=== PATIENT | female | born 1945 | race Caucasian/White ===

== ENCOUNTER → 2017-10-13 | Outpatient (CLI) | payer OTHER ==
[~2017-10-13] VITALS: Ht 167.6 cm; Wt 52.4 kg
[~2017-10-13] MED LIST: ASPIRIN EC81 M1 PO; ATIVAN1 MG PO; AVINZA 90 MG CA90 MG PO; CLONAZEPAM 0.50.5 M1 PO; ESCITALOPRAM OX20 MG PO; MELATONIN5 M1 PO; METHYLPHENIDATE5 M1 PO; MIRAPEX1 MG PO; MORPHINE SULFAT15 M3 PO; NIACIN SR 250250 MG PO; ONE DAILY TABL1 EACH PO; PROPECIA PO; VITAMIN B-12500 MCG PO; VITAMIN D31000 UNI2 PO; VITAMINC500 PO; ZANAFLEX4 MG PO; ZOLOFT100 MG PO; ZOLPIDEM TART12.5 M1 PO
--- NOTE | ~2017-10-13 | HPC ---
[facility] [place] [address] PAIN MANAGEMENT CONSULTATION Name: ÁNGELA RAGLAND Room #: REG [facility].#: [id number] Admission: 10/13/17 Attend Phys: Derek Izaguirre MD Discharge: Date of : 49 Report #: [id number] THIS REPORT FOR: //name// CC: Zoila Izaguirre DATE OF SERVICE: 10/17/2017 CHIEF COMPLAINT: Low back pain radiating into the left and right low back and into the leg. The patient was previously seen in the Pain Clinic over 4 years ago for treatment of back pain. She is a very active female who enjoys exercise and yoga. On 09/02/2017, she began experiencing back pain first in her right buttock and right thigh to the ankle. She had a noticeable limp. The right leg with very weak and then on 09/27/2017 on 09/28/2017, switched from her left low back and the right leg improved. This is more severe pain than the right previous pain that she was experiencing. It is worsened by activity, sitting. Every 2 hours during night or sleeping, she has to get up and reach or bend and it has been improved by cryotherapy and walking, although she specifies that it is better walking on firm ground than on the treadmill. She describes as constant with intensity often in the 9/10 range. MEDICATIONS: Methylphenidate, melatonin, Mirapex, tizanidine, Lexapro, multivitamins, morphine intermediate release 2-6 tablets per day, clonazepam and lorazepam. ALLERGIES: PENICILLIN, SULFA, TETRACYCLINE. PAST MEDICAL HISTORY: Previous history of back pain. History of anxiety, depression "Heart" calcifications in vessels noted on scan, 2 previous foot surgeries which included problems with RSD, torn meniscus in 2004. SOCIAL HISTORY: She is a teacher, working at [employer], teaching Biology. She denies use of tobacco or alcohol. She is with a supportive . REVIEW OF SYSTEMS: Completed by the patient and we went over each of the 12 categories. Primary noted are heart disease, nocturia, depression and insomnia. PQRS review shows osteoarthritis of knees, chronic. Below 20 BMI with a BMI of 18.7. She is not a fall risk. She is not hypertensive. She is on an opioid agreement outside of our clinic. Her functional assessment tool is 70. Risk assessment tool was not provided. Pain intensity 01/24. [facility] [address] [place] [address] PAIN MANAGEMENT CONSULTATION Name: ÁNGELA RAGLAND Room #: REG CLI [facility]#: [id number] Admission: 10/13/17 Attend Phys: Derek Izaguirre MD Discharge: Date of : 49 Report #: [id number] PHYSICAL EXAMINATION: GENERAL: Anxious female. VITAL SIGNS: Blood pressure is 125/80, heart rate is 80. She is able to move independently from sitting to standing position. She walks without antalgic features. CHEST: Clear to auscultation. CARDIAC: Rhythm is regular. ABDOMEN: Soft. BACK: Reveals normal alignment. There are painful areas alongside the spine with forward flexion and extension. Miinimal straight leg raising pain with left 3-4 radiation at straight leg raising. Strength 5/5 bilaterally throughout and DTR's 2+ knees and ankles without asymmetry. MRI: Throughout the spine, there is multilevel degenerative change and facet arthrosis. There is a grade 4/5 degenerative anterolisthesis, which is unchanged. There is an annular tear at L3-L4 associated with disk herniation of the far lateral location. There is no significant central stenosis throughout. IMPRESSION: Herniated nucleus pulposus, L3-L4 with annular tear. Lumbar spondylosis and anterolisthesis of L4 on L5. RECOMMENDATIONS: Epidural steroid injection. Lengthy discussion with the patient and regarding diagnosis and treatment. I plan to see her back for epidural injection as soon as we receive preauthorization from [employer]el[employer]. <ELECTRONICALLY SIGNED> By: Derek Izaguirre MD 10/17/17 1152 [id number] Derek Izaguirre MD /nt
[2017-10-13 12:45] VITALS: BP 156/88
== END ==
LOC: PAIN 07:06
DX: M47.26 Other spondylosis with radiculopathy, lumbar region (principal); Z88.0 Allergy status to penicillin; Z88.1 Allergy status to other antibiotic agents; Z88.2 Allergy status to sulfonamides

== ENCOUNTER → 2017-10-20 | Outpatient (CLI) | payer OTHER ==
[~2017-10-20] VITALS: Ht 167.6 cm; Wt 51.6 kg
[~2017-10-20] MED LIST changes: +CELEXA20 MG PO; +HYDROCODON-ACE1 EAC5 PO; +HYDROCODONE-AP1 EAC6 PO; +IBUPROFEN 600600 M1 PO
--- NOTE | ~2017-10-20 | HPC ---
[address] [address] PAIN MANAGEMENT CONSULTATION Name: ÁNGELA RAGLAND Room #: REG [facility].#: [id number] Admission: 10/20/17 Attend Phys: Derek Izaguirre MD Discharge: Date of : 49 Report #: [id number] THIS REPORT FOR: //name// CC: Zoila Izaguirre DATE OF REGISTRATION: 10/13/2017 Followup visit for lumbar radiculopathy with long discussion about opioid medications in 2018. We are still waiting on a preauthorization request sent to the patient's insurance company, [employer]. I am unable to provide her with injection until we receive that authorization. She has low back pain with radiation to the right buttock and into the right lower extremity. She has been treated previously for this as all has been over 12 years in my clinic. At that time, her last injection was a right L5-S1 transforaminal injection. We reviewed her underlying condition, which suggest that she has pain related to an L4-L5 grade 1 degenerative anterolisthesis. There may also be some associated radiculopathy related to an annular tear, although it is on the contralateral side. An epidural steroid injection is clearly reasonable next step and we will move to perform that as soon as possible, perhaps as early as Tuesday if we can get [employer] to preauthorize it for us. I spent an additional 25 minutes in this visit today, discussing with the patient her use of opioid medication. For years, she has taken 7.5 mg MSIR at bedtime to help with restless leg syndrome in addition to her polypharmacy for other issues. This has worked effectively. This was originally provided for her continuously by and continued by Dr. Crespo after departure from [place]. Recently, she said to me that Dr. Crespo was unwilling to prescribe her higher dose that has been utilized for this radicular symptom. 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 She has been using medications to allow her to continue to get through her day. On the weekend, her dose decreased down to less than half of that at 50 morphine mg equivalents. She is slightly better. We have discussed the CDC guidelines and our goal of using the lowest effective dose. We have talked about limiting her to 1 short acting opioid and after some discussion, she has agreed that she will use fairly scheduled dose of hydrocodone until the epidural injection. I provided for her 30 hydrocodone 10/325 tablets to take 1 tablet 3 times per day for a total of [address] [address] PAIN MANAGEMENT CONSULTATION Name: ÁNGELA RAGLAND Room #: REG [facility] [place]#: [id number] Admission: 10/20/17 Attend Phys: Derek Izaguirre MD Discharge: Date of : 49 Report #: [id number] An extensive discussion regarding the use of chronic opioids ensued. The patient was a patient in our clinic as far back as 1997. In the records that I have available, I can see that even in the year 1999 when she was suffering from complex regional pain syndrome, she was taking OxyContin 20 mg 2 tablets 3 times a day at one time as a peak. She has been on and off of opioids for about 20 years in order to help control pain. She has never shown signs of addiction. 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 I did express with her some concern about her polypharmacy with multiple centrally acting drugs. I think we can work to try and control her opioid medications, but she currently continues on Mirapex, tizanidine, Lexapro, clonazepam and lorazepam. I think we should be cautious, although she has shown tolerance to these combinations having used them over a course of many years. PHYSICAL EXAMINATION: GENERAL: She is pleasant today, slightly anxious. VITAL SIGNS: Height is 5 feet 6 inches, weight 113 pounds, blood pressure 146/98, heart rate 96. MUSCULOSKELETAL: Tenderness across the low back. Positive straight leg raising on the right following an L5 distribution. No focal weakness. Antalgic gait. IMPRESSION: Low back pain with radiculopathy following an L4-L5 distribution. Herniated nucleus pulposus, L3-L4 with anterolisthesis of L4-L5. PLAN: Epidural steroid injection under fluoroscopic guidance on her next visit. <ELECTRONICALLY SIGNED> By: Derek Izaguirre MD 10/24/17 1408 1612 46 Derek Izaguirre MD /nt
[2017-10-20 09:34] VITALS: BP 146/98
== END ==
LOC: PAIN 07:11
DX: M54.16 Radiculopathy, lumbar region (principal); F11.90 Opioid use, unspecified, uncomplicated

== ENCOUNTER → 2017-11-24 | Outpatient (CLI) | payer OTHER ==
[~2017-11-24] VITALS: Ht 167.6 cm; Wt 51.3 kg
[~2017-11-24] MED LIST changes: +AMBIEN 5 MG TABL5 M1 PO; +ASPIR 8181 MG PO; +FLEXERIL PO; +KADIAN20 MG PO; +MS CONTIN15 MG PO
--- NOTE | ~2017-11-24 | HPC ---
[facility] [place] [address] PAIN MANAGEMENT CONSULTATION Name: ÁNGELA RAGLAND Room #: REG [facility].#: [id number] Admission: 11/24/17 Attend Phys: Derek Izaguirre MD Discharge: Date of : 49 Report #: [id number] THIS REPORT FOR: //name// CC: Zoila Izaguirre DATE OF SERVICE: 11/24/2017 Followup visit for low back pain. The patient returns to the Pain Clinic today with her . She has continued to complain of pain across the low back, now complaining more so to the left. Her pain has changed some over the course of the last 4 months since onset. It originally began on the right, was associated with radicular features, then moved to the left and was across the lumbosacral segment. She has had an MRI, which shows evidence of degenerative disk disease, facet arthropathy. At the request of Dr. Crespo, she was referred to another pain physician at [facility], Dr. Dr. Jhonny Arceo. Dr. Arceo ordered flexion and extension views, which I have had the pleasure to review today. These do show some abnormal motion with a grade 1 anterolisthesis of L3-L4 and L4-L5 showing 2-3 mm of motion between flexion and extension as well as previously noted multilevel spondylosis. On presentation today, the patient's pain is far more localized in the left sacroiliac joint. This was noted also by Dr. Arceo. She has localized tenderness there and she has a positive VERONICA test. Consideration of a pain generator in the sacroiliac joint is certainly under consideration at this time. Pain is 6/10 today, at worse by activity, sitting, up and down activities, prolonged sleeping, bending. She is often painful when she first gets up. The pain does not radiate as it has before, although at times, she feels that her entire left leg is uncoordinated. The patient continued to do physical therapy and is active up to 30 minutes daily! MEDICATIONS: All medications were reviewed and reconciled provided by Dr. Crespo. There is complete list on the electronic medical record and is unchanged from previous visits. PHYSICAL EXAMINATION: Anxious female. She cried in my office today feeling hopeless that she will never get better. 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 Her blood pressure 162/96, heart rate 94. She is 5 feet 6 inches with a BMI of 18.2. She is able to easily move from sitting to standing position. Examination of the spine reveals some localized [facility] [address] [place] [address] PAIN MANAGEMENT CONSULTATION Name: ÁNGELA RAGLAND Room #: REG [facility]#: [id number] Admission: 11/24/17 Attend Phys: Derek Izaguirre MD Discharge: Date of : 49 Report #: [id number] tenderness primarily to the left in the area of the sacroiliac joint. She has more pain with forward flexion and extension. This is more axial than it is to the left in the SI joint. Straight leg raising today is negative. Sensation and strength are unchanged and within normal limits and symmetrical. There is a positive VERONICA suggesting sacroiliac joint pain with localized tenderness in the inferior pole. IMPRESSION: Intractable back pain, now 4 months in duration. This appears to be mechanical in nature. She has multiple abnormalities throughout her MRI suggesting degenerative changes of disks and facet joints as well as some motion noted in flexion and extension views of the lumbar spine. Exam would suggest that there is a sacroiliac mechanism today based upon localization of pain. RECOMMENDATIONS: I think a diagnostic/therapeutic sacroiliac injection might provide some worthy information and may even have some substantial therapeutic benefits. I have recommended that we proceed with that injection today, but need to receive preauthorization from [employer] insurance. We will do so and bring her back to the clinic in 3-4 days. Procedures and diagnostic testing were discussed in detail with the patient. Consultation time roughly 25 minutes. By: 1225 191 Derek Izaguirre MD /nt
[2017-11-24 11:20] VITALS: BP 162/96
== END ==
LOC: PAIN 05:40
DX: M54.5 Low back pain (principal)

== ENCOUNTER → 2017-12-01 | Outpatient (CLI) | payer OTHER ==
[~2017-12-01] VITALS: Ht 167.6 cm; Wt 50.6 kg
--- NOTE | ~2017-12-01 | HPC ---
[facility] [place] [address] PAIN MANAGEMENT CONSULTATION Name: ÁNGELA RAGLAND Room #: REG [facility].#: [id number] Admission: 12/01/17 Attend Phys: Derek Izaguirre MD Discharge: Date of : 49 Report #: [id number] THIS REPORT FOR: //name// CC: Zoila Izaguirre DATE OF SERVICE: 12/01/2017 DATE OF REGISTRATION: 12/01/2017 Followup visit for chronic low back pain. The patient is here today for sacroiliac injection. She was seen in the clinic a few days ago and we scheduled the appointment for today. She had a number of questions once again about her pain, many of which are unanswerable. She had questions about long-term prognosis. It is difficult to determine how her pain will progress. She does have spondylitic changes. She has some instability as noted with flexion and extension views on her x-rays. The most aggressive approach for her current instability would be lumbar fusion, but I have not recommended this surgery. It is hard to determine whether the pain that might result is from an aggressive fusion, might be worse than the pain associated with her underlying spondylitic changes in the sacroiliac joints as well as in the facet joints. Given the fact that she already has sacroiliac joint pain, fusion of the lumbosacral segments would likely only worsen that arthritic pain. We talked a bit about medications and talked a lot about exercise, but more importantly body mechanics to help prevent exacerbation of pain. At the conclusion of her questions, we discussed procedure, risks and benefits, informed consent was signed and she was taken to fluoroscopic suite for sacroiliac joint injection. PROCEDURE: Sacroiliac joint injection on the left. Under fluoroscopic guidance, the patient was taken to fluoroscopic suite and placed prone. Skin was prepped with ChloraPrep overlying the sacroiliac joint. Two separate needle approaches were used to identify the posterior capsule of the sacroiliac joint. Isovue was injected. I did see a small amount of dye enter into the joint space to determine partial arthrogram. After negative aspiration, I gently injected 1.5 mL of 0.25% bupivacaine mixed with 40 mg of triamcinolone. She tolerated the procedure well. There were no complications. She was taken to recovery room. I will see her back in a month. [address] [address] PAIN MANAGEMENT CONSULTATION Name: OBIEÁNGELA Room #: REG CLI [facility]#: [id number] Admission: 12/01/17 Attend Phys: Derek Izaguirre MD Discharge: Date of : 49 Report #: [id number] No medications were ordered on this visit. <ELECTRONICALLY SIGNED> By: Derek Izaguirre MD 12/05/17 1711 1217 1845 Derek Izaguirre MD /nt
[2017-12-01 09:33] VITALS: BP 145/97
== END | disposition home or self-care (01) ==
LOC: PAIN 08:15
DX: M53.3 Sacrococcygeal disorders, not elsewhere classified (principal); G89.29 Other chronic pain; M54.5 Low back pain; Z87.891 Personal history of nicotine dependence; Z88.0 Allergy status to penicillin; Z88.2 Allergy status to sulfonamides; Z88.8 Allergy status to other drugs, medicaments and biological substances; Z79.82 Long term (current) use of aspirin; Z98.890 Other specified postprocedural states; Z79.891 Long term (current) use of opiate analgesic

== ENCOUNTER → 2017-12-29 | Outpatient (CLI) | payer OTHER ==
[~2017-12-29] VITALS: Ht 167.6 cm; Wt 51.4 kg
[~2017-12-29] MED LIST changes: +NABUMETONE 750750 M1 PO
--- NOTE | ~2017-12-29 | HPC ---
[facility] [place] [address] PAIN MANAGEMENT CONSULTATION Name: ÁNGELA RAGLAND Room #: REG [facility].#: [id number] Admission: 12/29/17 Attend Phys: Derek Izaguirre MD Discharge: Date of : 49 Report #: [id number] THIS REPORT FOR: //name// CC: Dr Stephon Izaguirre DATE OF SERVICE: 12/29/2017 Followup visit for chronic low back pain. The patient was in the clinic today for roughly 25 minutes with her . She had another long list of questions regarding her underlying pain. Most of her pain is across her lumbosacral segment. She no longer seems to have much pain in her sacroiliac joints, which is good news. I treated the left SI joint with injection on 12/01/2017. She was told that she would always have pain and this has depressed her a bit. We talked a little bit about pain management, but I provided her with a more optimistic outlook. I am hopeful that with continued activity, back pain oftentimes can be intermittent and may have some resolution. We reviewed her underlying pathology from her MRI. There is a question if she has some age-related degenerative conditions, although she is lean and active. She nonetheless is 72 years old and her x-ray confirms some of that in the evidence of hypertrophic facet arthrosis and ligamentum hypertrophy. She has facet arthrosis bilaterally at L2-L3, L3-L4 and L4-L5. Fortunately; however, there is no significant central canal stenosis at any level and the neural foramen as well are in pretty good shape. She may be a candidate for some facet-mediated treatments. We could consider cortisone injections into this small facet injections, which for some of my patients has provided many months of relief and can be performed fairly quickly. This also would constitute a diagnostic injection. If the duration of response is short, then she would be a candidate to proceed with radiofrequency ablation once we have tested the medial branch nerves. I explained this to the patient and her . We talked a bit about medications. She is a bit reluctant to take medications and this is well understood. We talked about hydrocodone, which she has available and MS Contin, which she takes at bedtime. Her medications were prescribed outside of the clinic, so I did not go into a lot of discussion about the CDC guidelines and opioid management, but we did talk about the importance of carefully utilizing the medications and safeguarding them. PHYSICAL EXAMINATION: She is a bit anxious. Blood pressure 156/80, [place] [address] PAIN MANAGEMENT CONSULTATION Name: ÁNGELA RAGLAND Room #: REG [facility]..#: [id number] Admission: 12/29/17 Attend Phys: Derek Izaguirre MD Discharge: Date of : 49 Report #: [id number] 95, respirations 14, BMI is 18.3. Tenderness across the mid lumbar spine. There is no muscle spasm or tenderness. Most of the pain is noted with flexion and extension. Range of motion is quite good in flexion and extension. Straight leg raising is negative for radicular pain. IMPRESSION: Chronic and persistent low back pain. I think there is degenerative disease at more than one location. Certainly, her sacroiliac joints were painful, but she also has lumbar spondylosis. She will follow up in a month or so for possible facet injections. In the meantime, she is pursuing two other courses of treatment. She has been started on nabumetone and she is going to do acupuncture. She is also starting with Pilates. These 3 therapies may provide some nice improvement for so I am optimistic that I may not see her back for injections. Followup visit planned in 1 month. By: 1709 2043 Derek Izaguirre MD /nt
[2017-12-29 13:01] VITALS: BP 156/80
== END ==
LOC: PAIN 06:57
DX: M47.816 Spondylosis without myelopathy or radiculopathy, lumbar region (principal); M54.5 Low back pain; M53.3 Sacrococcygeal disorders, not elsewhere classified; G89.29 Other chronic pain

== ENCOUNTER → 2018-01-30 | Outpatient (CLI) | payer OTHER ==
[~2018-01-30] VITALS: Ht 167.6 cm; Wt 52.0 kg
[~2018-01-30] MED LIST changes: +CELECOXIB100 MG PO; +CYCLOBENZAPRINE5 MG PO; +GUANFACINE HCL1 MG PO; +OXYCODONE HCL10 MG PO; +PRAMIPEXOLE D0.25 MG PO
--- NOTE | ~2018-01-30 | HPC ---
[facility] [place] [address] [place] [address] PAIN MANAGEMENT CONSULTATION Name: ÁNGELA RAGLAND Room #: REG [facility].#: [id number] Admission: 01/30/18 Attend Phys: Derek Izaguirre MD Discharge: Date of : 49 Report #: [id number] THIS REPORT FOR: //name// CC: Zoila Izaguirre DATE OF SERVICE: 01/30/2018 Followup visit for ongoing persistent low back pain. The patient returns to pain clinic today in followup. She was only in my office for a 5-10 minute [id number] discussion. Her primary care physician, Dr. Crespo, has recommended that she see Dr. Zoila Ngo at [facility] for further treatment. At last visit, I discussed at length with the patient of her x-ray, which confirms evidence of hypertrophic facet arthrosis and ligamentum hypertrophy. I suggested that she would be a candidate for facet mediated treatments including injections and medial branch nerve blocks. She is receiving her pain medication from primary service. Dr. Ngo apparently agrees with this approach and will begin providing the treatments that I recommended at my last visit. I also noted at last visit that she was pursuing other courses of treatment. She was on a nonsteroidal anti-inflammatory drug nabumetone and was undergoing acupuncture. I queried her about the benefits from these treatments along with her Pilates. One of our goals was to see if she could respond to these conservative measures. Apparently, the acupuncture provided relief briefly following each visit but did not last, her treating practitioners recommended that she not return. I have wished her the best of luck in treatment with the radiofrequency directed at medial branch nerve blocks. All care for her chronic and persistent pain will be transferred to Dr. Zoila Ngo at [facility]. By: 1532 1604 Derek Izaguirre MD /nt
[2018-01-30 12:40] VITALS: BP 125/74
== END ==
LOC: PAIN 09:08
DX: M54.5 Low back pain (principal)

== ENCOUNTER → 2018-04-06 | Outpatient (CLI) | payer OTHER ==
[~2018-04-06] VITALS: Ht 167.6 cm; Wt 52.0 kg
[~2018-04-06] MED LIST changes: +LYRICA25 MG PO; +MORPHINE SULFAT20 M1 PO; +SERTRALINE HCL100 MG PO; +TOPROL XL25 MG PO; +TRAZODONE HCL50 MG PO; +ZOLPIDEM TART12.5 MG PO
--- NOTE | ~2018-04-06 | HPC ---
[facility] [place] [address] PAIN MANAGEMENT CONSULTATION Name: ÁNGELA RAGLAND Room #: REG [facility].#: [id number] Admission: 04/06/18 Attend Phys: Derek Izaguirre MD Discharge: Date of : 49 Report #: [id number] THIS REPORT FOR: //name// CC: Zoila Izaguirre DATE OF SERVICE: 04/06/2018 The patient is back in my clinic. Dr. Dumont has asked her to return to my service. Dr. Crespo has been asking for the patient to see Dr. Zoila Ngo at [facility]. She did so. She received medial branch nerve blocks there in addition to sacroiliac injections. They were unhelpful. She then saw Dr. Dumont who suggested that the patient return to my service. All medications were provided for the patient by her primary care physician, Dr. Crespo. She is here today for another look at her chronic pain. She has now had pain for nearly 6 months. The pain is in more than one location. We went through the pain history in some detail. Her most severe pain is a left central lumbosacral pain that is involved in the left sacroiliac joint, the cheek of the buttock. It radiates into the leg. It does not go far. Most of the pain stays high in the gluteal region. It is worse when it rains, but otherwise, there are no definable patterns. Back pain developed around the same time as pain in the left knee. She has some chronic problems there and had a lateral meniscectomy performed in [address] Akira Garcia at [facility]. She recovered well from that surgery, but when this new pain began in her left buttock region, it was associated also with pain in the left knee. They do not radiate in a classic radicular pattern. She has had some help with physical therapy. Most of the therapy has focused on movement throughout the lumbosacral segment in the hip and she says that the pain in her hip is better. She has a second pain on her right side. She describes this as a constant sensation with an intermittent severe aching in the top of her right foot and radiates into the toes. She describes her feet at times is cold and blue, worse on the right than the left. She has a history of complex regional pain syndrome. MEDICATIONS: Reviewed and reconciled. She is on a significant regimen of polypharmacy including sertraline, zolpidem, MS Contin 15 mg, oxycodone 10 q.8h., Lyrica 25 mg t.i.d., melatonin, lorazepam 1 mg now 4 [place] [address] PAIN MANAGEMENT CONSULTATION Name: ÁNGELA RAGLAND Room #: REG [facility]#: [id number] Admission: 04/06/18 Attend Phys: Derek Izaguirre MD Discharge: Date of : 49 Report #: [id number] used to take it just for sleep, but has taken more recently as she has become more anxious about her ongoing pain and concern. The patient sleeps well. She denies bowel or bladder dysfunction. She has had no weight loss or gain. Her depression is worse and she sees a counselor, Dr. Roman, a psychiatrist who prescribes her anxiety and depression medication. PHYSICAL EXAMINATION: She is an anxious female, slender and intense. Her blood pressure 129/89, heart rate 78, respirations 16. Her BMI is 18.5. This is normal for her. She is able to independently move from sitting to standing position and walks without any antalgic features to her gait. She has no pain with forward flexion of the lumbar spine. She can nearly touch her fingers to the floor. With extension, she has increasing pain on the left side of the lumbosacral segment. This involves area around and below the iliac crest. She has minimal discomfort in the right. There is localized tenderness along the facet joints of the left. Sacroiliac joint also is tender. Straight leg raising is negative for radiculopathy. Internal and external rotation of the hips are performed without any evidence of hip arthropathy. Sensation and strength are normal. She has a Jerilyn positive test, which aggravates a bit of pain across the low back, but no further. X-rays were reviewed. It does show that there is an annular tear, but this does not appear to be concordant with her pain. She has reported L4-L5 anterolisthesis, which would be consistent with facet arthropathy as noted. There is facet hypertrophic arthrosis and there is ligamentum hypertrophy. There is not evidence of central stenosis or neural foraminal narrowing. IMPRESSION: Lumbosacral pain, left-sided, aggravated by back extension and at this point, I will continue to entertain the possibility of facet arthropathy or perhaps sacroiliac joint as pain generator. We had a lengthy discussion about treatments including therapeutic and diagnostic injections of the facet injections. She has failed medial branch nerve blocks under the treatment of Dr. Zoila Ngo. I would still consider the possibility of left-sided L3-L4, L4-L5 and L5-S1 facet injections using the posterior inferior approach to the capsule. Procedure explained, risks and benefits. If she does not respond favorably to this, I would consider sacroiliac injection. In the meantime, most important thing she can do is continue to remain active with her therapy and remain engaged at work. This will help with her psychosocial concerns associated with her chronic pain. She can continue to [facility] [address] [place] [address] PAIN MANAGEMENT CONSULTATION Name: ÁNGELA RAGLAND Room #: REG CLI [facility].#: [id number] Admission: 04/06/18 Attend Phys: Derek Izaguirre MD Discharge: Date of : 49 Report #: [id number] receive her medication from her excellent treating physicians. She is scheduled back for facet injections in 1-2 weeks. By: [id number] Derek Izaguirre MD /nt
[2018-04-06 12:47] VITALS: BP 129/89
== END ==
LOC: PAIN 07:08
DX: M54.5 Low back pain (principal); M25.552 Pain in left hip; Z79.899 Other long term (current) drug therapy

== ENCOUNTER → 2018-05-08 | Outpatient (CLI) | payer OTHER ==
[~2018-05-08] VITALS: Ht 167.6 cm; Wt 52.6 kg
[~2018-05-08] MED LIST changes: +NUCYNTA50 MG PO
--- NOTE | ~2018-05-08 | HPC ---
[facility] [place] [address] [place] [address] PAIN MANAGEMENT CONSULTATION Name: ÁNGELA RAGLAND Room #: REG [facility].#: [id number] Admission: 05/08/18 Attend Phys: Derek Izaguirre MD Discharge: Date of : 49 Report #: [id number] THIS REPORT FOR: //name// CC: ANGELO Izaguirre DATE OF SERVICE: 05/08/2018 HISTORY OF PRESENT ILLNESS: The patient returns to pain clinic today for a 20-minute consultation followed by lumbar facet injections. She continues to complain of pain down into her back. It radiates into the hip. She has unusual sensations into the left knee. She has been managing with medication. Pain is primarily on the left. She has started on a new medicine tapentadol 50 mg q. 6 hours p.r.n. in addition to zolpidem for sleep, melatonin for sleep, lorazepam for anxiety 3-4 times a day, citalopram, Relafen. ALLERGIES: PENICILLIN, SULFA, TETRACYCLINE. 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 She is not going out much and I have encouraged some social activities. She is able to walk, but no more than about 10 minutes before she begins getting tightness. She has had some pain in her mid to upper back after a long day, so has been some rubbing Voltaren gel into her back. PHYSICAL EXAMINATION: She is an anxious female. Her blood pressure is 122/89, heart rate is 82, respirations 16. BMI is 18.7, typical for her. She moves from a sitting to standing position, ambulates with a mild antalgic gait favoring her left leg. She has pain in her left lower lumbosacral segment and pain with back extension reproducing pain that radiates into the buttock. Today, it does not radiate far down her leg but as far as the knee. She has good range of motion of the hip joint. Tenderness over the lumbosacral segment on the left of midline. X-rays are consistent with degenerative loss. She has arthritis and spondylosis. There is a degenerative anterolisthesis of L4 on L5 and also facet arthrosis at L3-L4. There is facet arthropathy also noted at L2-L3 on the left. IMPRESSION: Lumbar spondylosis. PROCEDURE: Three-level facet injections, L2-L3, L3-L4, L4-L5 under fluoroscopic guidance. DESCRIPTION OF PROCEDURE: She was taken to fluoroscopic suite, placed prone, skin prepped with ChloraPrep. Skin anesthetized with 1% lidocaine. A 25-gauge [address] [address] PAIN MANAGEMENT CONSULTATION Name: ÁNGELA RAGLAND Room #: REG [facility] Delta#: [id number] Admission: 05/08/18 Attend Phys: Derek Izaguirre MD Discharge: Date of : 49 Report #: [id number] spinal needle was advanced into the posterior inferior capsule of the joint at its most inferior location at each level. Needle slipped into the inferior recess. After negative aspiration, I injected each joint with 0.5 mL of 0.5% bupivacaine mixed with 15 mg of triamcinolone. She tolerated the procedure well and was observed for 45 minutes and discharged. Followup visit planned in the pain clinic on an as needed basis. By: [id number] Derek Izaguirre MD /nt
[2018-05-08 14:15] VITALS: BP 129/80
== END | disposition home or self-care (01) ==
LOC: PAIN 07:17
DX: M47.816 Spondylosis without myelopathy or radiculopathy, lumbar region (principal); G89.29 Other chronic pain; M19.90 Unspecified osteoarthritis, unspecified site; M43.16 Spondylolisthesis, lumbar region; Z88.0 Allergy status to penicillin; Z88.2 Allergy status to sulfonamides; Z88.8 Allergy status to other drugs, medicaments and biological substances; Z79.899 Other long term (current) drug therapy; Z87.891 Personal history of nicotine dependence

== ENCOUNTER → 2018-06-05 | Outpatient (CLI) | payer OTHER ==
[~2018-06-05] VITALS: Ht 167.6 cm; Wt 54.0 kg
[~2018-06-05] MED LIST changes: +IBUPROFEN 200200 M1 PO; +NORCO 10-325 T1 EACH PO; +TYLENOL EXTRA500 MG PO
--- NOTE | ~2018-06-05 | HPC ---
[facility] [place] [address] PAIN MANAGEMENT CONSULTATION Name: ÁNGELA RAGLAND Room #: REG [facility].#: [id number] Admission: 06/05/18 Attend Phys: Derek Izaguirre MD Discharge: Date of : 49 Report #: [id number] THIS REPORT FOR: //name// CC: Zoila Izaguirre DATE OF SERVICE: 06/05/2018 Followup visit for low back pain with radiculopathy, lumbar spondylosis with referred pain into the left leg. The patient returns with her . She remains discouraged by her ongoing pain. She has had injections by both Zoila Ngo at the [facility] pain clinic and by myself, intra-articular facet injections which did not provide much in the way of persistent or lasting relief. The facet medial branch nerve blocks did not provide relief even for a short time to suggest that we proceed with set denervation procedures. We are looking for another potential for her pain generator. She has had a history of chronic pain issues that develop intermittently including restless leg syndrome and she had complex regional pain syndrome in her right leg, which was bothersome for a number of months until she underwent a knee surgery and they used the opportunity to provide a continuous epidural for several days, which resolved her right leg pain. She obviously has a high sympathetic component to injury. I reviewed her MRI once again. The MRI performed earlier this year at [facility] showed most notably degenerative anterolisthesis at L4-L5, which created moderate hypertrophic facet arthrosis, but no significant neural foraminal narrowing. There was, however, facet arthrosis and a far lateral annular tear at L3-L4. The small broad-based posterior protrusion was present at L2-L3. There is not a lot in this MRI, but we have struggled so far to even provide diagnostic information with our injections. I have suggested that before giving up completely on injection treatments, I would try a left L4-L5 and left L3-L4, two-level transforaminal epidural injection to see if we can provide symptomatic relief. Potential risks and benefits of the procedure reviewed with her and the patient and they are anxious to try another injection to see if we can pinpoint something to ease her pain. She is slowly moving from a fixed position to a management mindset. She is grateful for the medication provided to her by the [facility] pain clinic. I have referred her back, but she would like to stay with our clinic. Even she was referred back to us by Dr. Butch Dumont. I have known the patient for over [place] [address] PAIN MANAGEMENT CONSULTATION Name: ÁNGELA RAGLAND Room #: REG JOANNA Sorenson#: [id number] Admission: 06/05/18 Attend Phys: Derek Izaguirre MD Discharge: Date of : 49 Report #: [id number] IMPRESSION: Intractable low back pain with radiation into the left L3-L4 and L4-L5 distribution. PLAN: Two level transforaminal epidural injection under fluoroscopic guidance. We have sought preauthorization for this procedure and we will perform at her next visit within the next week to 10 days. By: [id number] Derek Izaguirre MD /nt
[2018-06-05 14:57] VITALS: BP 140/76
== END ==
LOC: PAIN 08:24
DX: M54.16 Radiculopathy, lumbar region (principal); M47.896 Other spondylosis, lumbar region

== ENCOUNTER → 2018-06-12 | Outpatient (CLI) | payer OTHER ==
[~2018-06-12] VITALS: Ht 167.6 cm; Wt 52.0 kg
[~2018-06-12] MED LIST changes: +MOBIC7.5 MG PO
--- NOTE | ~2018-06-12 | HPC ---
[facility] [place] [address] PAIN MANAGEMENT CONSULTATION Name: ÁNGELA RAGLAND [id number] Admission: 06/12/18 Attend Phys: Derek Izaguirre MD Discharge: Date of : 49 Report #: [id number] THIS REPORT FOR: //name// CC: Dr. Stephon Izaguirre DATE OF SERVICE: 06/12/2018 Followup visit for low back pain, now with radiation in the left leg. The patient returns to pain clinic today with her for 2-level transforaminal injection at L3-L4 and L4-L5. We discussed this at great length on 06/05/2018. She is here today for the injection. We were unable to perform it on that day. There were a number of other questions today mostly surrounding medication. She continues to use magnesium oil. I have asked her to follow with her primary to get a magnesium level checked. I do not know what you think about magnesium toxicity, but we will research it for her. PQRS is as before. IMPRESSION: Low back pain with radiculopathy, left leg. Anterolisthesis L4 on L5. Radicular pain follows L3-L4 distribution. PROCEDURE: L3-L4, L4-L5 transforaminal epidural injection under fluoroscopic guidance. She was taken to fluoroscopic suite, placed prone, skin prepped with ChloraPrep. Skin anesthetized over L3-L4 and L4-L5 neural foramen on the left. A 20-gauge Tuohy epidural needle advanced first attempt into the epidural space using triplanar fluoroscopic views. There was no blood or CSF aspirated through either needle. After negative aspiration, I injected 40 mg of triamcinolone and 2 mL of 1% lidocaine into the neural foramen at L3-L4. The procedure was then repeated at L4-L5. There were no paresthesias. There was no complication. She had some numbness in her leg, which resolved over the next 30 minutes and was discharged in good condition with a reduction in pain. Followup visit planned in 1 month. By: [id number] Derek Izaguirre MD /nt
[2018-06-12 09:04] VITALS: BP 132/88
== END | disposition home or self-care (01) ==
LOC: PAIN 00:10
DX: M54.16 Radiculopathy, lumbar region (principal); M43.16 Spondylolisthesis, lumbar region; Z87.891 Personal history of nicotine dependence; Z88.0 Allergy status to penicillin; Z88.2 Allergy status to sulfonamides; Z88.8 Allergy status to other drugs, medicaments and biological substances; Z79.891 Long term (current) use of opiate analgesic

== ENCOUNTER → 2018-09-11 | Outpatient (CLI) | payer OTHER ==
[~2018-09-11] VITALS: Ht 167.6 cm; Wt 52.4 kg
[2018-09-11 12:48] VITALS: BP 135/89
--- NOTE | 2018-09-11 13:06 | NUR ---
Pain Clinic Assessment: 1. History of Osteoarthritis: knees History of Rheumatoid Arthritis: Not Applicable 2. Height: 5 ft. 6 in. 167.6 cm. Weight: 115.6 lb. oz. 52.436 kg. Patient's BMI: 18.7 3. Vital Signs: BP: 135/89 Pulse: 102 Resp: 14 Temp: 02 Sat: 100 ECG Mon: 4. Pain Intensity: 7 5. Fall Risk: Dizziness: N Needs help standing or walking: N Fallen in the last 3 months: N Fall risk comments: 6. Patient on Blood Thinner: None 7. History of Hypertension: N 8. Opioid Therapy greater than 6 weeks: Y Opiate Contract Signed: 9. Risk Assessment Tool Provided: DR WEINER 10. Functional Assessment Tool: 11. Recreational Drug Use: Never Drug Type: Tobacco Use: Former Smoker Tobacco Type: Amount or Packs/day: How Many Years: Alcohol Use: No Frequency: Quant:
--- NOTE | 2018-09-18 07:40 | HPC ---
[facility] [place] [address] PAIN MANAGEMENT CONSULTATION Name: ÁNGELA RAGLAND Room #: REG [facility].#: [id number] Admission: 09/11/18 ������������������ Attend Phys: Derek Izaguirre MD Discharge: ������������������ Date of : 47 Report #: [id number] THIS REPORT FOR: //name// CC: Dr. Stephon Izaguirre DATE OF SERVICE: 09/11/2018 Extended visit 25-minute consultation regarding ongoing foot pain. The patient is here today to describe her pains. She really has 3 separate pain generators, one is in her low back, a diffuse lumbosacral discomfort that is constant, worse with standing. She also has pain in her left knee, which is tender to the touch and is also bothered by exercise and prolonged standing. It is making it difficult for her to walk. She has had previous surgery on that leg with meniscectomy. Her third pain is a pain in the right foot, which historically was sympathetically mediated. We reviewed these pain generators separately. We also reviewed treatment for them individually and collectively. She may be a candidate for a more aggressive pain treatments including consideration for spinal cord stimulation and/or intrathecal pump therapy. Dr. Dumont has also discussed some surgery with her, although I have not had an opportunity to discuss it specifically with Dr. Dumont. She is continuing to work and enjoys her work. She does not want to quit and I have encouraged her to continue since it seems to provide some diversion for her. She has also worked with Dr. Gareth Rodriguez who has helped her significantly with pain management strategies including relaxation and breathing techniques. We discussed medications at length. She has tried hydrocodone and meloxicam. For the time being, she is staying off of those medications. MEDICATIONS: Currently are meloxicam, Tylenol, zolpidem, metoprolol, melatonin, lorazepam. PHYSICAL EXAMINATION: She is an anxious female. Blood pressure 135/89, heart rate 102, respirations 14, BMI 18.7. She moves independently from sitting to standing position. She complains of pain across her back if she straightens. She has pain with flexion, extension, rotation and [id number] tilt. She has tenderness across the lumbosacral segment and sacroiliac joints. She has no straight leg raising discomfort. No radiculopathy. There is tenderness of the right knee. The right foot is described as sensitive to touch and intolerant of cold. [facility] [address] [place] [address] PAIN MANAGEMENT CONSULTATION Name: ÁNGELA RAGLAND Room #: REG CLI [facility]#: [id number] Admission: 09/11/18 ������������������ Attend Phys: Derek Izaguirre MD Discharge: ������������������ Date of : 49 Report #: [id number] IMPRESSION: 1. Chronic intractable low back pain, post-laminectomy syndrome with radiculopathy. Anterolisthesis of L4 on L5. She has some instability and movement noted in flexion and extension views. Treatment of this condition surgically would likely require a fusion. We discussed this at some length today. 2. Pain in left knee. I believe this is arthropathy. She has had previous surgery. Meniscectomies results in some instability, which could cause pain. 3. Recurrence of right foot pain. Hopefully, this is not a recurrence of complex regional pain syndrome, but she does have a history of it. Dr. Dumont has suggested an epidural infusion and I would support that if this right foot pain and sympathetically mediated pain seems to worsen. She may see some extended benefit from this also through her low back. I would list her options as: I. Medication management. II. Intermittent injections therapies if they are helpful. III. Continue with regular physical therapy and exercise. IV. Pain management strategies continue through the [facility]. V. Possible consideration of implantable therapy. Spinal cord stimulation and intrathecal therapies were discussed. I am not optimistic that spinal cord stimulation would provide the hope for relief. We have had better luck with intrathecal therapies for long-term success. . Surgical fusion, which require a long recovery and has no guarantee of providing long-term benefit for these diffuse pains, particularly the knee and foot. She was appreciative of the discussion. She will be having an upcoming MRI. I will be glad to provide injection therapy for her at any time going forward in the future and advise on medication. ��������������������������������������������� <ELECTRONICALLY SIGNED> ���������������������������������������� By: Derek Izaguirre MD ��������������������������������������������� 09/18/18 0740 [id number] Derek Izaguirre MD /nt
== END ==
LOC: PAIN 08-28 08:49
DX: M96.1 Postlaminectomy syndrome, not elsewhere classified (principal); M54.16 Radiculopathy, lumbar region; M43.16 Spondylolisthesis, lumbar region; M79.671 Pain in right foot; G89.29 Other chronic pain; Z79.899 Other long term (current) drug therapy